=== PATIENT | female | born 1995 | race African-American/Black ===

== ENCOUNTER 2022-12-19 20:47 | Emergency (ER) | payer MEDICAID, OTHER ==
[~2022-12-19] VITALS: Ht 165.1 cm; Wt 75.2 kg
[2022-12-19 22:23] LABS: Rapid Strep A Screen-Throat Negative
[2022-12-19] MEDS ORDERED: KETOROLAC TROMETH 30 MG/ML 1ML VIAL IM ONE (23:45)
[2022-12-19] MEDS ORDERED: DexAMETHasone SOD PHOS 10MG/1ML VIAL INJ PO ONE (23:45)
[2022-12-19] MEDS ORDERED: AUG875T PO (23:58)
[2022-12-20 00:14] VITALS: BP 100/68; TEMP 98.1
[2022-12-20] MEDS ORDERED: KETOROLAC TROMETH 60MG/2ML VIAL IM ONE (00:15)
[2022-12-20 00:17] VITALS: PULSE 61; RESP 16; O2SAT 97
== END 2022-12-20 00:23 | disposition home or self-care (01) ==
LOC: ER 20:48
DX: J02.9 Acute pharyngitis, unspecified (principal)
CPT/HCPCS: 87070; 87077; 87880; 96372; 99283; J1100; J1885

== ENCOUNTER 2023-08-08 15:54 | Emergency (ER) | payer MEDICAID ==
[~2023-08-08] VITALS: Ht 165.1 cm; Wt 86.1 kg
[~2023-08-08 15:54] MED LIST: AUG875T PO
[2023-08-08 17:32] LABS: Urine Bacteria FEW /hpf (None Seen); Urine Blood 1+ /uL (Negative); Urine Clarity Turbid (Clear); Urine Color Light-Yellow (Yellow); Urine Mucus FEW (None Seen); Urine Protein, UAD TRACE (Negative); Urine Specific Gravity 1.019 (1.001-1.035); Urine Urobilinogen Normal (Negative); Urine WBC 291 /hpf (0 - 5)
[2023-08-08] MEDS ORDERED: NITR-52 PO (18:58)
[2023-08-08 19:08] VITALS: BP 115/73; PULSE 68; RESP 18; TEMP 98.3; O2SAT 99
== END 2023-08-08 19:10 | disposition home or self-care (01) ==
LOC: ER 15:54
DX: N39.0 Urinary tract infection, site not specified (principal)
CPT/HCPCS: 81001